=== PATIENT | male | born 1965 ===

== ENCOUNTER → 2018-03-07 | Outpatient (CLI) | payer OTHER | END | disposition home or self-care (01) | LOC: LAB SHORT 14:18 → LAB 14:18 | DX: L08.9 Local infection of the skin and subcutaneous tissue, unspecified (principal); C44.619 Basal cell carcinoma of skin of left upper limb, including shoulder; C44.629 Squamous cell carcinoma of skin of left upper limb, including shoulder | CPT/HCPCS: 87070; 87077; 87186; 87205 ==